=== PATIENT | male | born 1945 | race Caucasian/White ===

== ENCOUNTER 2016-09-09 12:35 | Emergency (ER) | payer OTHER ==
[2016-09-09 12:44] VITALS: RESP 18; TEMP 98.1
[2016-09-09 13:15] LABS: % IMMATURE GRANULYOCYTES 0.4 % (0.0-1.1); ABSOLUTE IMMATURE GRANULOCYTES 0.03 10^3/uL (0.00-0.10); ADD DIFF? NO; ADD MORPH? NO; ADD SCAN? NO; ATYPICAL LYMPHOCYTE FLAG 10 (0-99); FRAGMENT RBC FLAG 0 (0-99); HEMATOCRIT 43.7 % (40.0-51.0); HEMOGLOBIN 14.6 g/dL (13.7-17.5); LEFT SHIFT FLG 0 (0-99); LIPEMIA HEMOLYSIS FLAG 80 (0-99); MEAN CELL HEMOGLOBIN 29.7 pg (27.9-34.1); MEAN CELL HEMOGLOBIN CONCENTR. 33.4 g/dL (32.4-36.7); MEAN PLATELET VOLUME 11.2 fL (8.7-11.7); PLATELET CLUMPS FLAG 0 (0-99); PLATELET COUNT 171 10^3/uL (150-400); RED BLOOD CELL COUNT 4.91 10^6/uL (4.40-6.38); RED CELL DISTRIBUTION WIDTH 13.6 % (11.5-15.2)
--- NOTE | 2016-09-09 13:22 | EDPHY ---
H & P Time Seen by Provider: 09/09/16 13:22 HPI/ROS: CHIEF COMPLAINT: Rectal bleeding HISTORY OF PRESENT ILLNESS: This 71-year-old man has history of ulcerative colitis in his colonoscopy approximately every 2 years. His colonoscopy was yesterday by Dr. Oates and he really has not had ulcerative colitis symptoms for 2-3 years. He did have multiple biopsies performed. Yesterday evening he had 1 episode of blood in the toilet and some abdominal cramping. Today he felt better and went for a 20 minutes run and then had breakfast with a friend. Afterwards he had another episode of a tbsp or more of blood in the toilet 11:45 a.m. Currently does not have abdominal pain or further bleeding or lightheaded. REVIEW OF SYSTEMS: Eye: no change in vision ENT: no sore throat Cardiac: no chest pain or syncope Pulmonary: no cough or SOB Abdomen: HPI, no vomiting Musculoskeletal: no back pain Skin: no rash Neuro: no headache Constitutional: no fever : no urinary symptoms A comprehensive 10 point review of systems is otherwise negative aside from elements mentioned in the history of present illness. PAST MEDICAL HISTORY: Ulcerative colitis Social history: Here with spouse General Appearance: Alert and conversant, cooperative. Eyes: No scleral icterus. ENT, Mouth: Normal mucous membranes. Respiratory: Normal respiratory effort, breath sounds equal, lungs are clear to auscultation. Cardiovascular: Regular rate and rhythm. Gastrointestinal: Abdomen is soft and non tender. No rebound or guarding Neurological: Alert and oriented x3. Normally conversant. Face symmetric, normal movement and sensation in all extremities. Skin: No bruising or petechiae. Musculoskeletal: No peripheral edema and no joint swelling. Psychiatric: Not agitated. Emergency Department course/MDM: Hemoglobin and hematocrit noted at 14 and 43. Call is placed to the patient's gastroenterology practice for recommendations. Lyn [id number]; reviewed chart including scope from yesterday, DC home with precautions. Smoking Status: Never smoked Constitutional: Initial Vital Signs Temperature (C) 36.7 C 09/09/16 12:41 Heart Rate 77 09/09/16 12:41 Respiratory Rate 18 09/09/16 12:41 Blood Pressure 156/84 H 09/09/16 12:41 O2 Sat (%) 94 09/09/16 12:41 O2 Delivery Mode Room Air Allergies/Adverse Reactions: azathioprine [From Imuran] Allergy (Verified 09/09/16 12:45) azathioprine sodium [From Imuran] Allergy (Verified 09/09/16 12:45) nifedipine Allergy (Verified 09/09/16 12:46) Home Medications: Medication Instructions Recorded Clopidogrel Bisulfate [Plavix] 75 mg PO 09/09/16 Lisinopril 20 mg PO 09/09/16 Mesalamine [Apriso 0.375 gm] 1.5 gm PO DAILY 09/09/16 Rosuvastatin Calcium [Crestor 10mg 5 mg PO DAILY 09/09/16 (RX)] Medical Decision Making - Data Points Laboratory Results: Laboratory Results 09/09/16 13:00 09/09/16 13:00 WBC 8.39 10^3/uL 10^3/uL (3.80-9.50) RBC 4.91 10^6/uL 10^6/uL (4.40-6.38) Hgb 14.6 g/dL g/dL (13.7-17.5) Hct 43.7 % % (40.0-51.0) MCV 89.0 fL fL (81.5-99.8) MCH 29.7 pg pg (27.9-34.1) MCHC 33.4 g/dL g/dL (32.4-36.7) RDW 13.6 % % (11.5-15.2) Plt Count 171 10^3/uL 10^3/uL (150-400) MPV 11.2 fL fL (8.7-11.7) Neut % (Auto) 64.6 % % (39.3-74.2) Lymph % (Auto) 26.5 % % (15.0-45.0) Clare % (Auto) 7.3 % % (4.5-13.0) Eos % (Auto) 0.7 % % (0.6-7.6) Baso % (Auto) 0.5 % % (0.3-1.7) Nucleat RBC Rel Count 0.0 % % (0.0-0.2) Absolute Neuts (auto) 5.43 10^3/uL 10^3/uL (1.70-6.50) Absolute Lymphs (auto) 2.22 10^3/uL 10^3/uL (1.00-3.00) Absolute Monos (auto) 0.61 10^3/uL 10^3/uL (0.30-0.80) Absolute Eos (auto) 0.06 10^3/uL 10^3/uL (0.03-0.40) Absolute Basos (auto) 0.04 10^3/uL 10^3/uL (0.02-0.10) Absolute Nucleated RBC 0.00 10^3/uL 10^3/uL (0-0.01) Immature Gran % 0.4 % % (0.0-1.1) Immature Gran # 0.03 10^3/uL 10^3/uL (0.00-0.10) Departure - Departure Disposition: Home, Routine, Self-Care Clinical Impression: Gastrointestinal bleeding, lower Condition: Good Instructions: Gastrointestinal Bleeding (ED) Additional Instructions: Return if you get worsening bleeding or abdominal pain. According to Dr. Nicholson from [facility], he feels this likely should resolve on its own. Referrals: Oliva Ingram MD [Primary Care Provider] - As per Instructions Evan Oates MD [Medical Doctor] - As per Instructions
[2016-09-09 14:10] VITALS: BP 138/68; PULSE 63; O2SAT 96
== END 2016-09-09 14:10 | disposition home or self-care (01) ==
DX: K92.2 Gastrointestinal hemorrhage, unspecified (principal)

== ENCOUNTER 2018-09-20 07:00 | Day surgery (SDC) | payer OTHER ==
[2018-09-20] MEDS ORDERED: LR 1,000 ML IV ONE (07:26)
[2018-09-20] MEDS ORDERED: LIDOCAINE 1% 2 ML INJ ID PRN (07:26)
[2018-09-20] MEDS ORDERED: fentaNYL 100 MCG/2 ML INJ ONE (08:29)
[2018-09-20] MEDS ORDERED: PROPOFOL/EMULSION 500 MG/50 ML BOTTLE IV ONE ×2 (08:29→09:16)
--- NOTE | 2018-09-20 08:47 | PDANEPAE ---
ANE History of Present Illness EGD with EUS ANE Past Medical History - Cardiovascular History Hx Hypertension: Yes Hx Arrhythmias: No Hx Chest Pain: No Hx Coronary Artery / Peripheral Vascular Disease: Yes Hx CHF / Valvular Disease: No Hx Palpitations: No - Pulmonary History Hx COPD: No Hx Asthma/Reactive Airway Disease: No Hx Recent Upper Respiratory Infection: No Hx Oxygen in Use at Home: No Hx Sleep Apnea: No Sleep Apnea Screening Result - Last Documented: Positive Pulmonary History Comment: URI 08/2018 - Neurologic History Hx Cerebrovascular Accident: No Hx Seizures: No Hx Dementia: No - Endocrine History Hx Diabetes: No Obesity: no - Renal History Hx Renal Disorders: No - Liver History Hx Hepatic Disorders: No - Neurological & Psychiatric Hx Hx Neurological and Psychiatric Disorders: No - Cancer History Hx Cancer: Yes Cancer History Comment: SKIN - Congenital Disorder History Hx Congenital Disorders: No - GI History Hx Gastrointestinal Disorders: Yes Gastrointestinal History Comment: GERD. ULCERATIVE COLITIS - Chronic Pain History Chronic Pain: No - Surgical History Prior Surgeries: EGD 08/2018. RT CATARACT. RETINAL DETACHMENT OD. SINUS. TONSILLECTOMY ANE Review of Systems Review of Systems: - Exercise capacity METS (RN): 4 METS - Systems Cardiac: Reports: no symptoms (Severe Aortic regurg) Gastrointestinal: Reports: other (Ulcerative colitis) ANE Patient History - Allergies Allergies/Adverse Reactions: azathioprine [From Imuran] Allergy (Verified 09/20/18 07:37) azathioprine sodium [From Imuran] Allergy (Verified 09/20/18 07:37) LOST ENERGY/TIRED nifedipine Allergy (Verified 09/20/18 07:37) ANKLE RASH/SWELLING - Home Medications Home Medications: Clopidogrel Bisulfate [Plavix] 75 mg PO HS 09/09/16 [Last Taken 09/15/18 08:00] Lisinopril 20 mg PO DAILY 09/09/16 [Last Taken 09/20/18 05:15] Rosuvastatin Calcium [Crestor 10mg (RX)] 5 mg PO HS 09/09/16 [Last Taken ] Apriso 0.375 gm DAILY 09/19/18 [Last Taken 09/20/18 05:15] Herbals/Supplements -Info Only DAILY 09/19/18 [Last Taken 09/19/18] Omeprazole DAILY 09/19/18 [Last Taken 09/20/18 05:15] Sildenafil Citrate PRN 09/19/18 [Last Taken 09/16/18] Plavix 75 mg PO DAILY 09/20/18 [Last Taken 09/15/18] - NPO status NPO Status: no food or drink >8 hours NPO Since - Liquids (Date): 09/20/18 NPO Since - Liquids (Time): 05:15 NPO Since - Solids (Date): 09/19/18 NPO Since - Solids (Time): 20:15 - Smoking Hx Smoking Status: Never smoked ANE Labs/Vital Signs - Vital Signs Blood Pressure: 155/83 Heart Rate: 69 Respiratory Rate: 16 O2 Sat (%): 97 Height: 180.34 cm Weight: 70.76 kg ANE Physical Exam - Airway Neck exam: decreased ROM Mallampati Score: Class 2 - Pulmonary Pulmonary: no respiratory distress, no rales or rhonchi - Cardiovascular Cardiovascular: regular rate and rhythym, diastolic murmur - ASA Status ASA Status: III ANE Anesthesia Plan Anesthesia Plan: general endotracheal anesthesia Specialized Airway: video laryngoscope
[2018-09-20] MEDS ORDERED: fentaNYL 100 MCG/2 ML INJ IVP PRN (08:48)
[2018-09-20] MEDS ORDERED: ONDANSETRON 4 MG/2 ML VIAL IVP PRN (08:48)
[2018-09-20] MEDS ORDERED: HYDROCODONE/APAP 5/325 TAB PO PRN (08:48)
[2018-09-20] MEDS ORDERED: NALOXONE HCL 0.4 MG/ML INJ IVP PRN (08:48)
[2018-09-20] MEDS ORDERED: GLYCOPYRROLATE 0.2 MG/1 ML VIAL ONE ×2 (09:24→09:33)
[2018-09-20] MEDS ORDERED: ONDANSETRON 4 MG/2 ML VIAL ONE (09:24)
[2018-09-20] MEDS ORDERED: ROCURONIUM 50 MG/5 ML VIAL ONE (09:24)
[2018-09-20] MEDS ORDERED: LIDOCAINE 2% 5 ML SDV ONE (09:24)
[2018-09-20] MEDS ORDERED: NEOSTIGMINE METHYLSULFATE 5 MG/5 ML SYR ONE (09:34)
--- NOTE | 2018-09-20 09:45 | PDGENHP ---
History & Physical Chief Complaint: duodenal lesion History of Present Illness: 73 year old male presents for evaluation of duodenal lesion. Pertinent Past, Social, Family History: PMHx: aortic regurg, GERD. PSurgHX: tonsillectomy Relevant Physical Exam: HEENT: anicteric. CV: RRR +s1s2. Lungs: CTAB. Abd: soft, nt, + bs Cardiorespiratory Assessment: ASA 3
[2018-09-20] MEDS ORDERED: NS 500 ML IV SCH (10:00)
--- NOTE | 2018-09-20 10:30 | GIREPORT ---
[facility] - Endoscopy Department Patient Name: Scott Moffett Procedure Date: 09/20/2018 8:16 AM Patient Type: Outpatient Attending MD/ ER Physician: Osmin Martinez MD Procedure: Upper EUS Indications: Duodenal mucosal mass/polyp found on endoscopy, Polyps in the duodenum Patient Profile: 73 year old male presents for evaluation of a polypoid lesion in the duodenal bulb. Providers: Osmin Martinez MD Medicines: General Anesthesia Complications: No immediate complications. Estimated blood loss: Minimal. Description of Procedure: After obtaining informed consent, the endoscope was passed under direct vision. Throughout the procedure, the patient's blood pressure, pulse, and oxygen saturations were monitored continuously. The Endosonoscope was introduced through the mouth, and advanced to the second part of duoden um. The Endoscope was introduced through the mouth, and advanced to the sec ond part of duodenum. The upper EUS was accomplished without difficulty. Th e esopahgus, stomach, and duodenum were visualized endosnonograpically. T he patient tolerated the procedure well. Findings: Endoscopic Finding : The examined esophagus was normal. A hiatal hernia was present. A few small sessile polyps were found in the gastric fundus and in the gastric body. Biopsies were taken with a cold forceps for histology. A single large sessile polyp was found in the duodenal bulb. The lesion encompassed at least 70% of the circumferenace and located mainly in th e bulb and partly on the duodenal sweep. It was in a hard location to vie w the whole lesion endoscopically. Biopsies were taken with a cold forceps fo r histology. Area just distal was tattooed with an injection of 5 mL of I ndia ink. The ampulla was normal in appearance. Endosonographic Finding : An isoechoic mass was identified endosonographically in the duodenal bu lb. The lesion appeared confined to the mucosa, without extension into deep er wall layers. The endosonographic borders were well-defined. There was no sign of significant endosonographic abnormality in the com mon bile duct and in the gallbladder. There was no sign of significant endosonographic abnormality in the visualized portion of the liver. No masses were identified. Pancreatic parenchymal abnormalities were noted in the entire pancreas. These consisted of hyperechoic foci. The pancreatic duct had a prominently branched endosonographic appearan ce and had hyperechoic lemus in the entire pancreas. The pancreatic duct w as mildly dilated and 4mm in the head. No lymphadenopathy seen. Estimated Blood Loss: Estimated blood loss was minimal. Post Op Diagnosis: - Normal esophagus. - Hiatal hernia. - A few gastric polyps. Biopsied. - A single duodenal polyp. Biopsied. Tattooed. - A mass was found in the duodenal bulb. - There was no sign of significant pathology in the common bile duct an d in the gallbladder. - There was no evidence of significant pathology in the visualized port ion of the liver. - Pancreatic parenchymal abnormalities consisting of hyperechoic foci w ere noted in the entire pancreas. - The pancreatic duct had a prominently branched endosonographic appear ance and had hyperechoic lemus in the entire pancreas. - Etiology? Suspect lesion is a adenomatous polyp. Not amenable to endoscopic EMR due to location/size. Recommendation: - Discharge patient to home (with escort). - Advance diet as tolerated. - Await path results. - Continue present medications. - Surgical referral - Thank you for allowing me to participate in the care of your patient. Attending Participation: I personally performed the entire procedure. Osmin Martinez MD Osmin Martinez MD 09/20/2018 10:29:14 AM This report has been signed electronicallyOsmin Martinez MD Number of Addenda: 0 Note Initiated On: 09/20/2018 8:16 AM [email or web address]
--- NOTE | 2018-09-20 10:38 | POSTANESTH ---
Post Anesthetic Evaluation Cardiovascular Status: Normal, Stable Respiratory Status: Normal, Stable Level of Consciousness/Mental Status: Can Participate in Eval Pain Control: Adequate, Prn Tx Ordered Nausea/Vomiting Control: Adequate, Prn Tx Ordered Complications Possibly Related to Anesthesia: None Noted
[2018-09-20 10:54] VITALS: BP 126/56
--- NOTE | 2018-09-25 19:37 | GCON ---
[f rep st] CONSULTATION DATE OF CONSULTATION: 09/20/2018 HISTORY OF PRESENT ILLNESS: The patient is a 73-year-old male who just been seen by Dr. Martinez for EUS of a duodenal mass. He appears to have a submucosal mass in the duodenal bulb. There was no ulcera tion or anything. The patient was relatively asymptomatic from this area. He underwent endoscopy pr eviously because of gastroesophageal reflux symptoms. His upper endoscopy was negative, but this mas s was identified in his duodenal bulb. Biopsy, however, was benign, and so he was here having an EUS exam, and I was asked to consult. He is on Prilosec on a regular basis. He has had no major intraa bdominal surgery. REVIEW OF SYSTEMS: A 10-point review of systems was negative except as related in the HPI. PHYSICAL EXAMINATION: GENERAL APPEARANCE: An alert 73-year-old male who is in no acute distress. H EAD AND NECK: Revealed no icterus, adenopathy, or oral lesions. CHEST: Clear and symmetric. CARDI AC: Regular rhythm. ABDOMEN: Soft and nontender without masses. EXTREMITIES: Benign with full ra nge of motion. Full pulses. NEUROLOGIC: Physiologic and symmetric. PSYCH: Alert, oriented, and c ooperative. IMPRESSION: Duodenal bulb mass. PLAN: Risks and options were fully discussed. Plan is to see the patient in the office next week fo r followup evaluation and devise a plan of approach. This may need to be resected depending on the b iopsy results. He may need further evaluation with CT or upper GI imaging. /[id number]/MODL
== END 2018-09-20 11:11 | disposition home or self-care (01) ==
LOC: FSGY 07:00
PROVIDERS: ATTEND Internal Medicine Gastroenterology
DX: K31.7 Polyp of stomach and duodenum (principal); I35.1 Nonrheumatic aortic (valve) insufficiency; K21.9 Gastro-esophageal reflux disease without esophagitis
CPT/HCPCS: J2405; J2704; J2710; J3010

== ENCOUNTER → 2018-09-29 | Outpatient (CLI) | payer OTHER | LOC: FIMAGING 08:02 | PROVIDERS: ATTEND Surgery | DX: K21.9 Gastro-esophageal reflux disease without esophagitis (principal); K44.9 Diaphragmatic hernia without obstruction or gangrene; K31.7 Polyp of stomach and duodenum ==

== ENCOUNTER 2019-01-09 06:30 | Day surgery (SDC) | payer OTHER | END 2019-01-09 10:40 | disposition home or self-care (01) | LOC: FSGY 06:30 ==